=== PATIENT | female | born 1955 | race Caucasian/White ===

== ENCOUNTER 2017-05-04 08:23 | Outpatient (CLI) | payer BC ==
[2017-05-04 09:59] LABS: eGFR (African) > 60; eGFR (Non-African) > 60
== END 2017-05-04 08:53 ==
LOC: LAB 08:23
PROVIDERS: ATTEND Family Medicine
DX: E78.2 Mixed hyperlipidemia (principal); E11.9 Type 2 diabetes mellitus without complications
CPT/HCPCS: 36415; 80053; 80061; 83036

== ENCOUNTER 2018-11-30 13:52 | Outpatient (CLI) | payer MEDICARE ==
[2018-11-30 14:06] LABS: BASOPHILS % 0.6 (0.0-1.5); EOSINOPHILS % 2.5 % (0.0-6.8); MEAN CORPUSCULAR HEMOGLOBIN 32.5 pg (28.0-34.0); MONOCYTES % 4.3 % (0.0-11.0); NEUTROPHILS # 9.4 # k/uL (1.4-7.7)
[2018-11-30 14:56] LABS: eGFR (Non-African) > 60
== END 2018-11-30 13:54 ==
LOC: LAB 13:52
PROVIDERS: ATTEND Family Medicine
DX: R63.4 Abnormal weight loss (principal); E11.9 Type 2 diabetes mellitus without complications
CPT/HCPCS: 36415; 80053; 83036; 84443; 85025

== ENCOUNTER 2018-12-06 08:30 | Day surgery (SDC) | payer MEDICARE ==
[2018-12-06] MEDS ORDERED: LIDOCAINE HCL 2% PF 100MG/5ML VIAL IJ ONE (08:48)
[2018-12-06] MEDS ORDERED: LACTATED RINGERS 1,000 ML IV.SOLN IV ONE (08:48)
[2018-12-06] MEDS ORDERED: PROPOFOL 200 MG/20 ML VIAL IV ONE (08:48)
--- NOTE | 2018-12-07 15:01 | GI Report ---
REFERRING PHYSICIAN: Dr. Yenifer Vargas SIGNAL REPAIRER: Chip Matos MD PROCEDURE MEDICATION: Propofol as per anesthesia. INDICATIONS: Patient is a 63-year-old woman is referred because of some anorexia, epigastric discomfort, and nausea. She has lost significant weight. She used to weigh 255 and was a diabetic and hypertensive. She is now down to 186. She is 5 feet 2 inches. Her blood glucose improved and she went off metformin with improvement with her glucose with the weight loss. She has a lot of pain in her knees. She does take ibuprofen and also takes tramadol. Because of the epigastric discomfort, which is a change, she is referred for an evaluation. PROCEDURE PERFORMED: Endoscopy and biopsies. PROCEDURE: An Olympus video endoscope is passed through the esophagus under direct visualization. Patient has maybe grade 2 esophagitis at the GE junction. Stomach is entered. She does have gastroparesis. There is really not much motility and there are a number of superficial ulcers and erosions in the antrum of the stomach. Biopsies were taken for pathology. In the duodenum, again, mucosa looked atrophic in patches, so we did take some random biopsies of the duodenum. Patient tolerated the procedure well though it was very difficult getting an IV in her at the beginning of the procedure. FINDINGS: 1. Gastritis with superficial ulceration. 2. Duodenitis. 3. Esophagitis. RECOMMENDATIONS: 1. Would put her on a PPI daily, like omeprazole ,before her first meal. 2. Small frequent meals with the gastroparesis. 3. Continue on a diabetic-like diet even with the weight loss having improved her blood glucose. 4. Follow up biopsy results. 5. Further recommendations pending the biopsy results. cc: Dr. Yenifer GARCIA
== END 2018-12-06 11:10 ==
LOC: OPSURG 08:30
PROVIDERS: ATTEND Internal Medicine Gastroenterology
DX: K29.70 Gastritis, unspecified, without bleeding (principal); K25.9 Gastric ulcer, unspecified as acute or chronic, without hemorrhage or perforation; K29.80 Duodenitis without bleeding; K20.9 Esophagitis, unspecified
CPT/HCPCS: 43239; 88305; J2001; J2704; J7120; S1016

== ENCOUNTER 2018-12-07 08:37 | Outpatient (CLI) | payer MEDICARE ==
--- NOTE | 2018-12-07 11:42 | Diagnostic Imaging Report ---
FELIPE CORDOVA [facility] [id number] [facility].[address] [id number] Report Submission Date: Dec 07, 2018 11:11:11 AM BODY PIERCER Patient Study Name: ARNALDO HERZOG Date: Dec 07, 2018 9:52:29 AM BODY PIERCER Modality Type: CT Gender: F Description: CT ABD PELVIS W/ CON : 51 Institution: [facility] Physician: FELIPE CORDOVA CT abdomen and pelvis with contrast History: Unexplained weight loss Technique: Helically acquired images were obtained from the hemidiaphragms to the pelvic floor following IV and oral contrast. Findings: The liver is mildly enlarged measuring up to 20 cm. The spleen is borderline in size measuring 12 cm. The pancreas, adrenal glands, gallbladder and kidneys are unremarkable. No gastric abnormalities are noted. There is aortoiliac atherosclerosis without aneurysm. The appendix is normal. The uterus, adnexa and bladder are unremarkable. There is a large amount of stool throughout essentially the entire colon consistent with moderate constipation. Small and large bowel loops are normal in caliber. There is moderate disc space narrowing with discogenic endplate sclerosis, anterior and posterior spondylosis and vacuum disc phenomenon at L2/3 and L3/4. There does appear to be at least mild central stenosis at both of these levels. Impression: Mildly enlarged liver and borderline splenic size. Moderate constipation. Aortoiliac atherosclerosis. Degenerative disc disease at L2/3 and L3/4 with apparent at least mild central stenosis at both levels. Consider MRI. Electronically signed on Dec 07, 2018 11:11:11 AM BODY PIERCER by: Radha GARCIA
--- NOTE | 2018-12-07 11:43 | Diagnostic Imaging Report ---
FELIPE CORDOVA [facility] [id number] [facility] [address] [id number] Report Submission Date: Dec 07, 2018 11:05:00 AM TAILINGS MAN Patient Study Name: ARNALDO HERZOG Date: Dec 07, 2018 10:04:54 AM TAILINGS MAN Modality Type: CT\SR Gender: F Description: CT CHEST W/ CONTRAST : 51 Institution: [facility] Physician: FELIPE CORDOVA CT chest with contrast History: Unexplained weight loss Technique: Helically acquired images were obtained through the chest following IV contrast. Findings: There is no mediastinal or hilar lymphadenopathy. There is no pericardial or pleural effusion. Heart size is normal. The thoracic aorta is normal in caliber. There is no axillary lymphadenopathy. Large, extensive and predominantly anterior marginal osteophytes are present throughout the entire thoracic spine consistent with diffuse idiopathic skeletal hyperostosis. Vertebral body height is maintained. The right lung is clear. There is a single 3-4 mm left upper lobe nodule. There is a tiny calcified granuloma laterally at the left upper lobe. The remainder of the left lung is clear. Impression: Diffuse idiopathic skeletal hyperostosis of the thoracic spine. Single 3-4 mm noncalcified and smoothly marginated nodule at the left upper lobe. Per 2017 Fleischner criteria, if the patient is low risk, no follow-up is needed. If the patient is high risk, consider follow-up chest CT in 12 months time. Electronically signed on Dec 07, 2018 11:05:00 AM TAILINGS MAN by: Radha GARCIA
== END 2018-12-07 08:40 ==
LOC: RAD 08:37
PROVIDERS: ATTEND Family Medicine
DX: R63.4 Abnormal weight loss (principal); R09.02 Hypoxemia; R16.0 Hepatomegaly, not elsewhere classified; K59.00 Constipation, unspecified; M51.36 Other intervertebral disc degeneration, lumbar region
CPT/HCPCS: 71260; 74177; Q9966; Q9967

== ENCOUNTER 2019-02-14 07:12 | Day surgery (SDC) | payer MEDICARE, OTHER ==
[2019-02-14] MEDS ORDERED: LIDOCAINE HCL 2% PF 100MG/5ML VIAL IJ ONE (08:48)
[2019-02-14] MEDS ORDERED: PROPOFOL 200 MG/20 ML VIAL IV ONE (08:48)
[2019-02-14] MEDS ORDERED: LACTATED RINGERS 1,000 ML IV.SOLN IV ONE (08:48)
--- NOTE | 2019-02-17 10:10 | GI Report ---
PROCEDURE PERFORMED: Colonoscopy and polypectomy. SURGEON: Vito Martin M.D., F.A.CKanwalP. INDICATION FOR PROCEDURE: The patient is a 63-year-old woman referred for screening colonoscopy. She has been diabetic, hypertensive though that has improved with weight loss. She denies noting blood in her stool. There is cancer in the family but mainly breast, not colon that she is aware of. She is 51, weighs 185. Lungs: Clear. Heart: Regular. Abdomen: Soft, obese. PROCEDURE MEDICATION: Propofol, as per Anesthesia. DESCRIPTION OF PROCEDURE: The Olympus video colonoscope was advanced through the rectum. The prep was only fair, there was still some residual brown dark liquid stool present. We did use lavage to reach the cecum. The appendiceal orifice, ileocecal valve were normal. On slow withdrawal, the ascending colon, transverse colon were normal until we got near the splenic flexure. At 60 cm the patient had a 4 mm flat polyp removed with a cold snare, and submitted to pathology. I did see descending colon and sigmoid some redundancy, and a few diverticula. Retroflexion of in the rectum was normal. The patient tolerated the procedure well. FINDINGS: 1. Polyp removed from the transverse colon near the splenic flexure. 2. An atonic redundant colon with mild diverticular disease. 3. A poor prep. RECOMMENDATIONS: 1. Consider relook at her colon in 5 years pending the pathology. 2. Increase fiber in her diet, consistent with her diabetic diet. VITO MARTIN M.D., F.A.C.P. DOMO/galilea Job#: [id number] Cc: Dr. Vargas] RADHA
== END 2019-02-14 09:36 | disposition home or self-care (01) ==
LOC: OPSURG 07:12
PROVIDERS: ATTEND Internal Medicine Gastroenterology
DX: Z12.11 Encounter for screening for malignant neoplasm of colon (principal); D12.3 Benign neoplasm of transverse colon; K59.8 Other specified functional intestinal disorders
CPT/HCPCS: 45385; 88305; J2001; J2704; J7120; S1016